=== PATIENT | male | born 1950 | race Caucasian/White ===

== ENCOUNTER → 2025-01-08 | Outpatient (CLI) | payer MEDICARE ==
[2025-01-08 12:40] LABS: BASO # 0.0 10^3/uL (0.0-0.2); BASO % 0.0 % (0.0-1.0); EOS # 0.0 10^3/uL (0.0-0.5); EOS % 0.0 % (0.0-3.0); LYMPH # 0.4 10^3/uL (1.5-5.0); LYMPH % 38.0 % (24.0-44.0); MONO # 0.4 10^3/uL (0.0-0.8); MONO % 40.0 % (2.0-8.0); NEUTROPHILS % 22.0 % (36.0-66.0)
[2025-01-08 15:00] LABS: PLATELET COUNT, AUTOMATED 24 10^3/uL (150-450)
[2025-01-08 15:01] LABS: NEUTROPHILS # 0.2 10^3/uL (1.5-8.5)
== END ==
LOC: M LAB 11:41
PROVIDERS: ATTEND Family Medicine
DX: C95.90 Leukemia, unspecified not having achieved remission (principal)